=== PATIENT | male | born 1995 | race African-American/Black ===

== ENCOUNTER 2018-01-01 18:00 | Emergency (ER) | payer OTHER ==
[~2018-01-01] VITALS: Ht 188 cm; Wt 99.8 kg
[~2018-01-01 18:00] MED LIST: FLEXERIL PO; NAPROSYN500 MG PO
[2018-01-01] MEDS ORDERED: IBUPROFEN 600600 M1 PO (19:50)
== END 2018-01-01 20:34 | disposition home or self-care (01) ==
LOC: ER 18:00
DX: S00.83XA Contusion of other part of head, initial encounter (principal); S80.211A Abrasion, right knee, initial encounter; V29.9XXA Motorcycle rider (driver) (passenger) injured in unspecified traffic accident, initial encounter; Y93.89 Activity, other specified; Y92.89 Other specified places as the place of occurrence of the external cause; Y99.8 Other external cause status

== ENCOUNTER 2018-01-06 01:07 | Emergency (ER) | payer OTHER ==
[~2018-01-06] VITALS: Ht 188 cm; Wt 99.8 kg
[~2018-01-06 01:07] MED LIST changes: +IBUPROFEN 600600 M1 PO
[2018-01-06] MEDS ORDERED: IBUPROFEN 400400 M2 PO (01:28)
[2018-01-06] MEDS ORDERED: NORFLEX100 MG PO (02:18)
== END 2018-01-06 02:59 | disposition home or self-care (01) ==
LOC: ER 01:07
DX: M23.92 Unspecified internal derangement of left knee (principal)

== ENCOUNTER 2019-11-12 21:23 | Emergency (ER) | payer OTHER ==
[~2019-11-12] VITALS: Ht 190.5 cm; Wt 106.6 kg
[~2019-11-12 21:23] MED LIST changes: +IBUPROFEN 400400 M2 PO; +NORFLEX100 MG PO; +ZOFRAN ODT4 MG PO
[2019-11-12] MEDS ORDERED: NORFLEX100 MG PO (22:40)
[2019-11-12] MEDS ORDERED: NAPROSYN500 MG PO (22:40)
[2019-11-12 23:21] VITALS: BP 123/85
--- NOTE | 2019-11-14 15:01 | EKG ---
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
== END 2019-11-12 23:25 | disposition home or self-care (01) ==
LOC: ER 21:23
DX: B34.9 Viral infection, unspecified (principal); R09.1 Pleurisy